=== PATIENT | female | born 1975 | race Caucasian/White ===

== ENCOUNTER 2022-04-18 14:47 | Outpatient (CLI) | payer BC, SELFPAY ==
--- NOTE | 2022-04-18 15:20 | DI.RAD_ITS ---
Exam(s) XR FOOT LT COMPLETE XR ANKLE LT COMPLETE EXAM: XR FOOT LT COMPLETE and XR ankle LT complete CLINICAL HISTORY: Pain in LT foot-M79.672, Twisted ankle foot, ? fx VS sprain. TECHNIQUE: 2D digital imaging was performed of the left foot. Six images were obtained. AP, obliqu e and lateral views were obtained. COMPARISON: No previous for comparison. FINDINGS: BONES: There is a lucency seen through the distal and lateral aspect of the calcaneus on the AP view suspicious for nondisplaced fracture. No bony destructive lesion is seen. Postsurgical changes are s een in the 5th metatarsal bone including a sideplate and screws. JOINTS: No dislocation present. Degenerative changes are seen in the foot particularly at the 5th MTP joint. The ankle mortise is intact. SOFT TISSUE: There is soft tissue swelling lateral to the 5th MTP joint. IMPRESSION: 1. Nondisplaced fracture at the distal and lateral aspect of the calcaneus seen on the AP view of the foot. 2. No other acute fracture or dislocation is seen in the foot or ankle. DATA REPOSITORY: RADIATION DOSE DELIVERED:
== END 2022-04-18 15:07 ==
LOC: DI 14:49
PROVIDERS: Visit Provider Physician Assistant Medical
DX: S92.002A Unspecified fracture of left calcaneus, initial encounter for closed fracture (principal); X50.1XXA Overexertion from prolonged static or awkward postures, initial encounter
CPT/HCPCS: 73610; 73630